=== PATIENT | male | born 1995 | race American Indian/Alaskan Native ===

== ENCOUNTER 2017-12-15 19:19 | Emergency (ER) | payer SELFPAY ==
[2017-12-15 20:02] VITALS: BP 119/51
--- NOTE | 2017-12-15 20:41 | XRay Report ---
FINAL REPORT PROCEDURE: XR HAND 3+V RT TECHNIQUE: RIGHT hand radiographs, AP, lateral, and oblique views. CPT 92908-KA HISTORY: injury, swelling COMPARISON: No prior studies are available for comparison. FINDINGS: Fracture (s) and/or Dislocation(s): None . Alignment: Normal . Joint space(s): Normal . Soft tissues: Normal . Bone mineralization: Normal . Foreign bodies: None . IMPRESSION: Normal Examination .
== END 2017-12-15 22:25 | disposition left against medical advice (07) ==
LOC: ED 19:19
DX: M79.641 Pain in right hand (principal); Z53.21 Procedure and treatment not carried out due to patient leaving prior to being seen by health care provider

== ENCOUNTER 2017-12-16 17:01 | Emergency (ER) | payer SELFPAY ==
[2017-12-16 17:10] VITALS: BP 122/64
--- NOTE | 2017-12-16 17:22 | Emergency Department Report ---
Upper Extremity - HPI Upper Extremity: Right Middle Finger Occurred When: 1 Day Mechanism: Hit with Object, Crush Severity: moderate Symptoms: Yes Pain with Movement, Yes Deformity, Yes Limited Range of Movement, No Numbness, No Weakness, No Swelling, No Bruising/Ecchymosis, No Laceration or Abrasion Other History: 22-year-old male past medical history none presents with complaint of right middle finger pain. As per patient yesterday while closing the door to his vehicle he accidentally slammed his right middle finger with edge of car door. Patient has abrasion overlying the right palmar side PIP joint. No large laceration visible overlying joint. Patient has some swelling surrounding this area. Denies injury to any other body part. Patient is awake alert and oriented 3. Nonacute distress. Does not know his tetanus vaccine status. Visibly ranging wrist and all of the fingers without difficulty. <LYDIA FERNANDEZ - Last Filed: 12/16/17 17:41> <AMY KHOURY - Last Filed: 12/17/17 19:17> - HPI Chief Complaint: Extremity Injury, Upper Stated Complaint: FINGER INJURY Time Seen by Provider: 12/16/17 17:17 ED Review of Systems ROS: Stated complaint: FINGER INJURY Other details as noted in HPI Constitutional: denies: chills, fever Eyes: denies: eye pain, eye discharge, vision change ENT: denies: ear pain, throat pain Respiratory: denies: cough, shortness of breath, wheezing Cardiovascular: denies: chest pain, palpitations Endocrine: no symptoms reported Gastrointestinal: denies: abdominal pain, nausea, diarrhea Genitourinary: denies: urgency, dysuria Musculoskeletal: denies: back pain, joint swelling, arthralgia Skin: denies: rash, lesions Neurological: denies: headache, weakness, paresthesias Psychiatric: denies: anxiety, depression Hematological/Lymphatic: denies: easy bleeding, easy bruising <LYDIA FERNANDEZ - Last Filed: 12/16/17 17:41> ROS: Stated complaint: FINGER INJURY Other details as noted in HPI <AMY KHOURY - Last Filed: 12/17/17 19:17> ED Past Medical Hx - Past Medical History Previous Medical History?: No - Surgical History Past Surgical History?: No - Social History Smoking Status: Never Smoker Substance Use Type: None <LYDIA FERNANDEZ - Last Filed: 12/16/17 17:41> <AMY KHOURY - Last Filed: 12/17/17 19:17> - Medications Home Medications: Home Medications Medication Instructions Recorded Confirmed Last Taken Type Ibuprofen [Motrin] 800 mg PO Q8HR PRN #20 tablet 12/16/17 Unknown Rx Mupirocin [Bactroban 2%] 1 applic TP TID #1 tube 12/16/17 Unknown Rx Upper Extremity Exam - Exam General: Vital signs noted. No distress. Alert and acting appropriately. Head and Torso: No HEENT Abnormality, No Neck Tenderness, No Chest/Lungs Abnormality, No Abdominal Tenderness, No Back Tenderness Shoulder Exam: Yes Normal Range of Motion in Shoulder, No Shoulder Tenderness, No Clavicle Tenderness, No Shoulder Deformity, No AC Joint Tenderness Arm Exam: No Arm/Humerus Tenderness, No Arm Deformity Elbow: No Elbow Tenderness, No Normal Range of Motion in Elbow, No Elbow Deformity Forearm: No Forearm Tenderness, No Forearm Deformity, No Pain with Pronation, No Pain with Supination Wrist: Yes Normal ROM in Wrist, No Wrist Tenderness, No Wrist Deformity, No Snuffbox Tenderness, No Pain with Axial Thumb Compression Hand: Yes Digit Tenderness, Yes Normal ROM in Digit(s), No Hand Tenderness, No Hand Deformity, No Digit(s) Deformity, No Tendon Dysfunction CMS Exam: Yes Broken Skin (break in skin right distal middle finger), Yes Normal Distal Pulses (distal capillary refill less than. Distal radial and ulnar pulses strong to palpation distal sensation intact), Yes Normal Capillary Refill, Yes Normal Distal Sensation Hand L/R Front: 1 - Small abrasion <LYDIA FERNANDEZ - Last Filed: 12/16/17 17:41> - Exam General: Vital signs noted. No distress. Alert and acting appropriately. <AMY KHOURY - Last Filed: 12/17/17 19:17> ED Course Vital Signs 12/16/17 17:07 Temperature 98.6 F Pulse Rate 70 Respiratory 18 Rate Blood Pressure 122/64 O2 Sat by Pulse 100 Oximetry <LYDIA FERNANDEZ - Last Filed: 12/16/17 17:41> Vital Signs 12/16/17 17:07 Temperature 98.6 F Pulse Rate 70 Respiratory 18 Rate Blood Pressure 122/64 O2 Sat by Pulse 100 Oximetry <AMY KHOURY - Last Filed: 12/17/17 19:17> ED Medical Decision Making - Medical Decision Making A/P: Finger abrasion, finger sprain 1- x-ray done last night shows no fracture. 2- Tdap updated today 3- finger splint, topical bacitracin 4- follow-up with orthopedics. Neurovascular exam and motor exam clinically intact <LYDIA FERNANDEZ - Last Filed: 12/16/17 17:41> - Medical Decision Making I was available for consultations at all times during the patient stay. I did not personally see and was not involved in the care of the patient. <AYM KHOURY - Last Filed: 12/17/17 19:17> Critical care attestation.: If time is entered above; I have spent that time in minutes in the direct care of this critically ill patient, excluding procedure time. <LYDIA FERNANDEZ - Last Filed: 12/16/17 17:41> Critical care attestation.: If time is entered above; I have spent that time in minutes in the direct care of this critically ill patient, excluding procedure time. <AMY KHOURY - Last Filed: 12/17/17 19:17> ED Disposition Is pt being admited?: No Does the pt Need Aspirin: No Time of Disposition: 17:40 <LYDIA FERNANDEZ - Last Filed: 12/16/17 17:41> <AMY KHOURY - Last Filed: 12/17/17 19:17> Disposition: DC-01 TO HOME OR SELFCARE Condition: Stable Instructions: Finger Sprain (ED), Abrasion (ED) Prescriptions: Ibuprofen [Motrin] 800 mg PO Q8HR PRN #20 tablet PRN Reason: Pain , Severe (7-10) Mupirocin [Bactroban 2%] 1 applic TP TID #1 tube Referrals: MARY JO WATSON MD [Staff Physician] - 3-5 Days Forms: Accompanied Note
[2017-12-16] MEDS ORDERED: TRIPLE ANTIBIOTIC TP ONE (17:32)
[2017-12-16] MEDS ORDERED: BOOSTRIX IM ONE (17:32)
== END 2017-12-16 18:12 | disposition home or self-care (01) ==
LOC: ED 17:01
DX: S63.612A Unspecified sprain of right middle finger, initial encounter (principal); W23.1XXA Caught, crushed, jammed, or pinched between stationary objects, initial encounter; Y93.89 Activity, other specified; Y99.8 Other external cause status; Y92.89 Other specified places as the place of occurrence of the external cause
CPT/HCPCS: 90471; 90715; 99282; A6250

== ENCOUNTER 2020-11-05 13:02 | Emergency (ER) | payer SELFPAY ==
[2020-11-05 13:30] VITALS: BP 111/54
--- NOTE | 2020-11-05 16:33 | Emergency Department Report ---
[facility] Chief Complaint: Eye Problems Stated Complaint: EYE IRRITATION Time Seen by Provider: 11/05/20 16:24 Duration: 2 Days Side: Bilateral Severity: mild, moderate Symptoms: Yes Eye Itching, Yes Eye Redness, Yes Eye Pain (gritty sensation), Yes Mucous Drainage, Yes Preceding URI (nasal congestion with discharge), No Blurred Vision, No Contact Lens Use, No Trauma, No Fever ED Review of Systems ROS: Stated complaint: EYE IRRITATION Other details as noted in HPI Comment: All other systems reviewed and negative ED Past Medical Hx - Past Medical History Previous Medical History?: No - Surgical History Past Surgical History?: No - Social History Smoking Status: Current Some Day Smoker Substance Use Type: Alcohol - Medications Home Medications: Home Medications Medication Instructions Recorded Confirmed Last Taken Type Ibuprofen [Motrin] 800 mg PO Q8HR PRN #20 tablet 12/16/17 Unknown Rx Mupirocin [Bactroban 2%] 1 applic TP TID #1 tube 12/16/17 Unknown Rx Naphazoline HCl/Pheniramine 1 drop OU BID #1 bottle 11/05/20 Unknown Rx [Naphcon-A Eye Drops] Tobramycin [Tobrex] 1 drop OP Q4H #1 bottle 11/05/20 Unknown Rx [facility] Exam - Exam General: Vital signs noted. No distress. Alert and acting appropriately. Eye Exam: Both Injection, Both EOMI, Both Mucous Discharge, Neither Chemosis, Neither Abnormal Pupil, Neither Eye Foreign Body, Neither Lid Foreign Body, Neither Corneal Edema, Neither Photophobia HEENT: Yes Nasal Congestion, No Pharyngeal Erythema Remainder of HEENT: Normal Lungs: Yes Clear Lung Sounds, Yes Good Air Exchange, No Stridor, No Cough, No Retractions ED Course Vital Signs 11/05/20 13:29 Temperature 98.6 F Pulse Rate 61 Respiratory 18 Rate Blood Pressure 111/54 O2 Sat by Pulse 97 Oximetry Critical care attestation.: If time is entered above; I have spent that time in minutes in the direct care o f this critically ill patient, excluding procedure time. ED Disposition Clinical Impression: Conjunctivitis Disposition: DC-01 TO HOME OR SELFCARE Is pt being admited?: No Does the pt Need Aspirin: No Condition: Stable Prescriptions: Naphazoline HCl/Pheniramine [Naphcon-A Eye Drops] 1 drop OU BID #1 bottle Tobramycin [Tobrex] 1 drop OP Q4H #1 bottle Referrals: PRIMARY CARE, [Primary Care Provider] - 3-5 Days [facility] [Provider Group] - 3-5 Days
== END 2020-11-05 16:56 | disposition home or self-care (01) ==
LOC: ED 13:02
DX: H10.9 Unspecified conjunctivitis (principal); F17.200 Nicotine dependence, unspecified, uncomplicated; Z79.899 Other long term (current) drug therapy
CPT/HCPCS: 99282